=== PATIENT | female | born 1955 | race Asian ===

== ENCOUNTER 2021-09-18 13:00 | Inpatient (IN) | payer OTHER, MEDICAID ==
[~2021-09-18] VITALS: Ht 154.9 cm; Wt 56.7 kg
[2021-09-18 14:40] LABS: Basophils # (auto) 0.1 10 ^3/uL (0-0.2); Basophils % (auto) 1.1 % (0.0-2.0); Eosinophils # (auto) 0.1 10 ^3/uL (0-0.8); Eosinophils % (auto) 0.8 % (0.0-7.0); Hematocrit 34.9 % (36.0-46.0); Hemoglobin 11.6 g/dL (12.2-16.2); Lymphocytes # (auto) 0.3 10 ^3/uL (0.4-5.4); Lymphocytes % (auto) 4.8 % (10.0-50.0); Mean Corpuscular Hemoglobin 32.5 pg (28.0-32.0); Mean Corpuscular Hgb Conc. 33.3 g/dL (32.0-36.0); Mean Corpuscular Volume 97.5 fL (80.0-100.0); Monocytes # (auto) 0.3 10 ^3/uL (0-1.3); Monocytes % (auto) 4.9 % (0.0-12.0); Neutrophils # (auto) 5.8 10 ^3/uL (1.6-8.6); Neutrophils % (auto) 88.4 % (37.0-80.0); Red Blood Cells 3.58 10^6/uL (4.0-5.20); Red Cell Distribution Width 15.9 % (11.8-14.3); White Blood Cell 6.6 10^3/uL (4.4-10.8)
[2021-09-18] MEDS ORDERED: LABETALOL HCL 5 MG/ML 4ML SYRINGE IV ONE (15:15)
[2021-09-18 15:48] LABS: Potassium 4.5 mmol/L (3.5-5.1)
[2021-09-18 15:53] LABS: Albumin 3.3 g/dL (3.4-5.0); Calcium 9.1 mg/dL (8.5-10.1)
[2021-09-18 16:02] LABS: Bilirubin, Total 0.8 mg/dL (0.2-1.0); Total Protein 8.1 g/dL (6.4-8.2)
[2021-09-18] MEDS ORDERED: ONDANSETRON HCL 4 MG/2 ML VIAL ONE (16:13)
[2021-09-18] MEDS ORDERED: ONDANSETRON HCL 4 MG/2 ML VIAL IV ONE (16:15)
[2021-09-18] MEDS ORDERED: HYDROmorphone HCL 2 MG/ML VL IV ONE (16:15)
[2021-09-18] MEDS ORDERED: HYDROcodone-ACET 5/325MG TAB PO PRN (20:45)
[2021-09-18] MEDS ORDERED: NITROGLYCERIN 0.4 MG SL TAB SL PRN (20:45)
[2021-09-18] MEDS ORDERED: ACETAMINOPHEN 325 MG TAB PO PRN (20:45)
[2021-09-18] MEDS ORDERED: ONDANSETRON HCL 4 MG/2 ML VIAL IV PRN (20:45)
[2021-09-18] MEDS ORDERED: TEMAZEPAM 15 MG CAP PO PRN (20:45)
[2021-09-18] MEDS ORDERED: MORPHINE SULFATE INJECTION 2 MG/ML SYRG IV PRN (20:45)
[2021-09-18] MEDS: ASCORBIC ACID 500 MG TAB PO SCH (22:00)
[2021-09-18] MEDS: ATORVASTATIN 20 MG TAB PO SCH (22:00)
[2021-09-19] MEDS: cloNIDine HCL 0.1 MG TAB PO PRN ×2 (01:35→08:06)
[2021-09-19 04:50] LABS: Basophils # (auto) 0.1 10 ^3/uL (0-0.2); Basophils % (auto) 1.6 % (0.0-2.0); Eosinophils # (auto) 0.2 10 ^3/uL (0-0.8); Eosinophils % (auto) 3.8 % (0.0-7.0); Hematocrit 33.3 % (36.0-46.0); Hemoglobin 11.1 g/dL (12.2-16.2); Lymphocytes # (auto) 0.7 10 ^3/uL (0.4-5.4); Lymphocytes % (auto) 11.6 % (10.0-50.0); Mean Corpuscular Hemoglobin 32.8 pg (28.0-32.0); Mean Corpuscular Hgb Conc. 33.4 g/dL (32.0-36.0); Mean Corpuscular Volume 98.2 fL (80.0-100.0); Monocytes # (auto) 0.7 10 ^3/uL (0-1.3); Monocytes % (auto) 12.3 % (0.0-12.0); Neutrophils % (auto) 70.7 % (37.0-80.0); Nucleated Red Blood Cells % 0.1 %; Red Blood Cells 3.39 10^6/uL (4.0-5.20); Red Cell Distribution Width 15.4 % (11.8-14.3); White Blood Cell 5.7 10^3/uL (4.4-10.8)
[2021-09-19 05:10] LABS: Potassium 4.2 mmol/L (3.5-5.1)
[2021-09-19 05:17] LABS: Albumin 2.9 g/dL (3.4-5.0); Bilirubin, Total 0.5 mg/dL (0.2-1.0); Calcium 8.4 mg/dL (8.5-10.1)
[2021-09-19] MEDS: SEVELAMER 800 MG TAB PO SCH ×3 (08:31→17:40)
[2021-09-19] MEDS ORDERED: amLODIPine BESYLATE 5 MG TAB PO SCH (10:00)
[2021-09-19] MEDS ORDERED: PANTOPRAZOLE 40 MG TAB PO SCH (10:00)
[2021-09-19] MEDS: ASPirin 81 mg TAB PO SCH (10:21)
[2021-09-19] MEDS: ZINC SULFATE 220mg CAP or TAB PO SCH (10:21)
[2021-09-19] MEDS: ASCORBIC ACID 500 MG TAB PO SCH ×2 (10:22→22:00)
[2021-09-19] MEDS ORDERED: CLON0.1T PO (15:26)
[2021-09-19] MEDS: hydrALAZINE HCL 25 MG TAB PO SCH (17:41)
[2021-09-19] MEDS: ATORVASTATIN 20 MG TAB PO SCH (22:00)
[2021-09-20] MEDS: hydrALAZINE HCL 25 MG TAB PO SCH
[2021-09-20 06:14] LABS: Albumin 2.9 g/dL (3.4-5.0); Calcium 8.3 mg/dL (8.5-10.1); Magnesium 3.4 mg/dL (1.6-2.6); Potassium 4.9 mmol/L (3.5-5.1)
[2021-09-20 06:19] LABS: BUN/Creatinine Ratio 5.6; Bilirubin, Total 0.4 mg/dL (0.2-1.0); Total Protein 7.2 g/dL (6.4-8.2)
[2021-09-20 09:00] VITALS: BP 136/68
[2021-09-20] MEDS: ASPirin 81 mg TAB PO SCH (09:05)
[2021-09-20] MEDS: ZINC SULFATE 220mg CAP or TAB PO SCH (09:05)
[2021-09-20] MEDS: SEVELAMER 800 MG TAB PO SCH (09:05)
[2021-09-20] MEDS: ASCORBIC ACID 500 MG TAB PO SCH (09:05)
[2021-09-20] MEDS ORDERED: NIFEdipine ER 30 MG TAB PO SCH (10:00)
[2021-09-20] MEDS ORDERED: HYDR50TA15 PO (10:07)
[2021-09-20] MEDS ORDERED: NIFE1TAB36 PO (10:07)
[2021-09-20 10:29] VITALS: BP 136/68
[2021-09-20] MEDS ORDERED: ASPI1TAB20 PO (11:23)
== END 2021-09-20 10:00 | disposition home or self-care (01) | DRG 280 ==
LOC: ER 13:00 → EDBD 13:00 → TELE 20:44 → TELE-CENTR 09-19 13:22
PROVIDERS: ADMIT Nurse Practitioner; ATTEND Internal Medicine
DX: I16.0 Hypertensive urgency (principal); N18.6 End stage renal disease; I21.A1 Myocardial infarction type 2; I50.33 Acute on chronic diastolic (congestive) heart failure; I13.2 Hypertensive heart and chronic kidney disease with heart failure and with stage 5 chronic kidney disease, or end stage renal disease; D63.1 Anemia in chronic kidney disease; E11.22 Type 2 diabetes mellitus with diabetic chronic kidney disease; I27.20 Pulmonary hypertension, unspecified; Z20.822 Contact with and (suspected) exposure to COVID-19; Z99.2 Dependence on renal dialysis; Z88.0 Allergy status to penicillin
CPT/HCPCS: 36415; 70450; 71045; 80053; 80061; 82306; 83036; 83735; 83880; 84443; 84484; 85025; 87426; 93005; 93306; 96374; 96375; G0378; J2405; J3490